=== PATIENT | female | born 1970 | race Caucasian/White ===

== ENCOUNTER 2024-12-14 08:53 | Day surgery (SDC) | payer OTHER ==
[~2024-12-14 08:53] MED LIST: Lactated Ringers 1,000 ML IV SCH; Sodium Chloride 0.9% 10 ML Syringe FLUSH PRN; Sodium Chloride 0.9% 10 ML Syringe FLUSH SCH
[2024-12-14] MEDS: Lactated Ringers 1,000 ML IV SCH (09:20)
[2024-12-14] MEDS: Scopalamine 1mg/3day Transdermal Patch TRDERM PRN (09:30)
[2024-12-14] MEDS ORDERED: Propofol 200 MG/20 ML SDV ONE ×3 (09:39→11:40)
[2024-12-14] MEDS: oxyCODONE ER 10 MG TAB.ER PO ONE (09:40)
[2024-12-14] MEDS: Acetaminophen 325 MG Tab PO ONE (09:40)
[2024-12-14] MEDS: Pregabalin 25 MG Cap PO ONE (09:40)
[2024-12-14] MEDS ORDERED: Midazolam 1 MG/ML 2 ML SDV ONE (09:41)
[2024-12-14] MEDS ORDERED: fentaNYL 100 MCG/2 ML SDV ONE (09:42)
[2024-12-14] MEDS ORDERED: Dexamethasone 4 MG/ML 5 ML MDV ONE (09:43)
[2024-12-14] MEDS ORDERED: Ondansetron 4 MG/2 ML SDV ONE (09:43)
[2024-12-14] MEDS ORDERED: ceFAZolin 2 GM Vial ONE (09:44)
[2024-12-14] MEDS ORDERED: Lactated Ringers 1,000 ML ONE (10:48)
[2024-12-14] MEDS: VANCOmycin 1 GM SDV ONE (12:03)
[2024-12-14] MEDS: Tranexamic Acid 1,000 MG/10 ML Vial ONE (12:03)
[2024-12-14] MEDS: Morphine 8 MG, EPINEPHrine 0.3 MG, Cefuroxime 750 MG, Ketorolac 30 MG, Sodium Chloride ... PRN (12:03)
[2024-12-14] MEDS ORDERED: Ondansetron 4 MG/2 ML SDV IVPUSH PRN (12:47)
[2024-12-14] MEDS ORDERED: HYDROmorphone 0.5 MG/0.5 ML Syringe IVPUSH PRN (12:47)
[2024-12-14] MEDS ORDERED: fentaNYL 100 MCG/2 ML SDV IVPUSH PRN (12:47)
[2024-12-14] MEDS: oxyCODONE 5 MG Tab PO PRN (15:49)
== END 2024-12-14 16:45 | disposition home or self-care (01) ==
LOC: JD.SDS 08:53
PROVIDERS: ATTEND Orthopaedic Surgery
DX: M16.11 Unilateral primary osteoarthritis, right hip (principal); G89.29 Other chronic pain; R26.2 Difficulty in walking, not elsewhere classified; Z87.891 Personal history of nicotine dependence
CPT/HCPCS: 01214; 73501-26-RT; 73501-RT; 97116-GP; 97161-GP; 97530-GP; A9270-GY; C1713; C1776; J0171; J0690; J0697; J1100; J1885; J2250; J2272; J2405; J2704; J3010; J3490; J7120